=== PATIENT | female | born 1985 | race African-American/Black ===

== ENCOUNTER 2016-10-12 14:30 | Emergency (ER) | payer OTHER, SELFPAY ==
[2016-10-12] MEDS ORDERED: Fluorescein Opthalmic Strip ONE (14:38)
[2016-10-12] MEDS ORDERED: Tetracaine HCl 0.5% Ophth Soln 2 ML Bottle ONE (14:38)
[2016-10-12] MEDS ORDERED: diphenhydrAMINE HCl 25 MG CAP ONE (14:48)
[2016-10-12] MEDS ORDERED: predniSONE 20 MG TAB ONE (14:48)
== END 2016-10-12 14:59 | disposition home or self-care (01) ==
LOC: NAV ERS 14:30
DX: H10.45 Other chronic allergic conjunctivitis (principal); F17.210 Nicotine dependence, cigarettes, uncomplicated
CPT/HCPCS: 99283; J7506